=== PATIENT | female | born 1965 | race Two or more races ===

== ENCOUNTER 2017-06-04 13:29 | Emergency (ER) | payer MEDICAID ==
[~2017-06-04] VITALS: Ht 154.9 cm; Wt 67.8 kg
[2017-06-04 14:18] LABS: BASOPHILS # (AUTO) 0.03 x10^3/uL (0-0.1); BASOPHILS % (AUTO) 1 % (0-1); EOSINOPHILS # (AUTO) 0.02 x10^3/uL (0-0.4); EOSINOPHILS % (AUTO) 0 % (1-7); LYMPHOCYTES # (AUTO) 2.05 x10^3/uL (1-3.4); LYMPHOCYTES % (AUTO) 39 % (22-44); MD NO; MEAN CORPUSCULAR HEMOGLOBIN 32.2 pg (27.0-34.8); MEAN CORPUSCULAR HGB CONC 33.4 g/dL (32.4-35.8); MEAN CORPUSCULAR VOLUME 96.6 fL (80-100); MEAN PLATELET VOLUME 8.3 fL (7.4-10.4); MONOCYTES # (AUTO) 0.61 x10^3/uL (0.2-0.8); MONOCYTES % (AUTO) 12 % (2-9); NEUTROPHILS # (AUTO) 2.51 x10^3/uL (1.8-6.8); NEUTROPHILS % (AUTO) 48 % (42-75); PLATELET COUNT 247 x10^3/uL (130-400); RED BLOOD COUNT 4.86 x10^6/uL (3.82-5.3); RED CELL DISTRIBUTION WIDTH 13.3 % (9.6-15.2)
[2017-06-04 14:25] LABS: ALBUMIN 3.8 g/dL (3.4-5.0); ANION GAP 7 mmol/L (5-15); CALCIUM 8.3 mg/dL (8.5-10.1); CHLORIDE 103 mmol/L (98-107)
[2017-06-04 14:28] LABS: CREATININE 0.85 mg/dL (0.55-1.02)
[2017-06-04 14:29] LABS: ALANINE AMINOTRANSFERASE 35 U/L (12-78); ALKALINE PHOSPHATASE 65 U/L (45-117); BILIRUBIN,TOTAL 0.3 mg/dL (0.2-1.0); TOTAL PROTEIN 7.2 g/dL (6.4-8.2)
[2017-06-04] MEDS ORDERED: MAALOX/HYOSCYAMINE/LIDOCAINE 45 ML BTL ONE (15:12)
[2017-06-04 15:15] VITALS: BP 180/106
[2017-06-04 15:29] LABS: MICROSCOPIC NOT IND
[2017-06-04] MEDS ORDERED: MAALOX/HYOSCYAMINE/LIDOCAINE 45 ML BTL PO ONE (15:30)
[2017-06-04 15:39] LABS: CULTURE INDICATED? NO
== END 2017-06-04 16:28 | disposition home or self-care (01) ==
LOC: ED 16:18
DX: K29.20 Alcoholic gastritis without bleeding (principal); I10 Essential (primary) hypertension; R10.12 Left upper quadrant pain; R10.11 Right upper quadrant pain
CPT/HCPCS: 36415; 76700; 80053; 81003; 83690; 85025; 99285

== ENCOUNTER 2018-12-04 09:58 | Emergency (ER) | payer MEDICAID, OTHER ==
[~2018-12-04] VITALS: Ht 157.5 cm; Wt 64.2 kg
--- NOTE | 2018-12-04 10:30 | NUR ---
pt in room with x ray. bp reassessed by . pt has no wants or needs at this time.
[2018-12-04 10:55] VITALS: BP 175/95
== END 2018-12-04 11:23 | disposition home or self-care (01) ==
LOC: ED 11:10
DX: S93.492A Sprain of other ligament of left ankle, initial encounter (principal); I10 Essential (primary) hypertension; X50.1XXA Overexertion from prolonged static or awkward postures, initial encounter; Y93.89 Activity, other specified; Y92.89 Other specified places as the place of occurrence of the external cause; Y99.8 Other external cause status
CPT/HCPCS: 99283

== ENCOUNTER 2018-12-10 12:59 | Emergency (ER) | payer SELFPAY ==
[~2018-12-10] VITALS: Ht 165.1 cm; Wt 64.0 kg
[2018-12-10 13:04] VITALS: BP 191/115
== END 2018-12-10 14:34 | disposition home or self-care (01) ==
LOC: ED 14:25
DX: S93.492A Sprain of other ligament of left ankle, initial encounter (principal); I10 Essential (primary) hypertension; X50.1XXA Overexertion from prolonged static or awkward postures, initial encounter; Y93.89 Activity, other specified; Y92.89 Other specified places as the place of occurrence of the external cause; Y99.8 Other external cause status
CPT/HCPCS: 99283

== ENCOUNTER 2019-11-05 11:49 | Emergency (ER) | payer MEDICAID ==
[~2019-11-05] VITALS: Ht 162.6 cm; Wt 67.0 kg
[2019-11-05 12:24] VITALS: BP 177/95
--- NOTE | 2019-11-05 12:32 | NUR ---
FIRST CONTACT WITH PT. PT HAS CO OF LEFT ANKLE PAIN, PT ROLLED ANKLE WHILE WALKING. PT'S AOX4. RESPS EVEN AND UNLABORED.
--- NOTE | 2019-11-05 12:55 | NUR ---
pa at bedside to evaluate at this time.
--- NOTE | 2019-11-05 13:57 | NUR ---
PA AT BEDSIDE TO EXPLAIN ALL RESULTS AT THIS TIME.
--- NOTE | 2019-11-05 14:12 | NUR ---
EMT AT BEDSIDE AT THIS TIME.
--- NOTE | 2019-11-05 14:35 | NUR ---
Patient given discharge instructions and they have confirmed that they understand the instructions. Patient ambulatory with steady gait.
== END 2019-11-05 14:36 | disposition home or self-care (01) ==
LOC: ED 14:30
DX: S93.492A Sprain of other ligament of left ankle, initial encounter (principal); I10 Essential (primary) hypertension; X50.1XXA Overexertion from prolonged static or awkward postures, initial encounter; Y93.89 Activity, other specified; Y92.488 Other paved roadways as the place of occurrence of the external cause; Y99.8 Other external cause status
CPT/HCPCS: 99284

== ENCOUNTER 2020-07-30 11:17 | Emergency (ER) | payer MEDICAID ==
[~2020-07-30] VITALS: Ht 162.6 cm; Wt 68.0 kg
--- NOTE | 2020-07-30 11:28 | NUR ---
PT AMBULATORY TO ROOM 20 W/ C/O LLE TOP OF FOOT PAIN STARTED LAST SUNDAY. PT STATES THE PAIN STARTED TO GET WORSE OVER THE NEXT FEW DAYS. PAIN X 8 DAYS. PT DENIES HX GOUT, DM2. PT RESTING IN CHAIR. NADN. DENIES N/T/WEAKNESS TO FOOT.
--- NOTE | 2020-07-30 11:35 | NUR ---
PREET ANTUNEZ AT BEDSIDE FOR EVAL.
[2020-07-30] MEDS ORDERED: KETOROLAC 30 MG/1 ML ONE (11:55)
[2020-07-30 11:57] VITALS: BP 133/82
--- NOTE | 2020-07-30 11:57 | NUR ---
PT RESTING ON GURNEY. NADN. MORENO.
--- NOTE | 2020-07-30 11:59 | NUR ---
PT CHART REVIEWED AND PLACED FOR RECHECK
[2020-07-30] MEDS ORDERED: KETOROLAC 30 MG/1 ML IM ONE (12:00)
== END 2020-07-30 12:44 | disposition home or self-care (01) ==
LOC: ED 12:20
DX: M77.8 Other enthesopathies, not elsewhere classified (principal); M79.672 Pain in left foot; I10 Essential (primary) hypertension
CPT/HCPCS: 73630; 96372; 99283; J1885